=== PATIENT | male | born 1995 | race African-American/Black ===

== ENCOUNTER 2017-08-04 01:35 | Emergency (ER) | payer OTHER ==
[2017-08-04] MEDS ORDERED: ONDANSETRON HCL INJ/PF 4 MG/2 ML SDV IV ONE (01:56)
[2017-08-04] MEDS ORDERED: PANTOPRAZOLE SODIUM 40 MG VIAL IV ONE (01:56)
[2017-08-04] MEDS ORDERED: NORMAL SALINE 1000 ML 1,000 ML IV ONE (01:57)
--- NOTE | 2017-08-04 02:07 | ER Document Report ---
ED General - General Chief Complaint: Vomiting Stated Complaint: DIARRHEA,VOMITING Time Seen by Provider: 08/04/17 01:51 Notes: Patient is a 22-year-old male presents with complaint of coughing. He says for last couple days been coughing a lot bringing up mucus. He says today he started becoming nauseous and vomited several times. He said the last time he threw up he did throw up some blood. She has also been having diarrhea today. He said every time he drinks water he eventually has just liquidy stools. No black or tarry stools. No blood in the stool. No history of acid reflux. He denies any abdominal pain. He denies chest pain. He denies any recent alcohol use. The last time he drank alcohol was approximately 2 weeks ago. He says he never drank on a daily basis and never considered himself to be an alcoholic. He does not take any medications. He denies taking any recent Motrin, Advil, ibuprofen, aspirin, or any NSAIDs. No history of gastric ulcers or gastritis. TRAVEL OUTSIDE OF THE [place] IN LAST 30 DAYS: No - Related Data Allergies/Adverse Reactions: Penicillins Allergy (Verified 08/04/17 01:40) Past Medical History - Social History Smoking Status: Unknown if Ever Smoked Frequency of alcohol use: Occasional Drug Abuse: None Family History: Reviewed & Not Pertinent Review of Systems - Review of Systems Notes: My Normal Review Basic REVIEW OF SYSTEMS: CONSTITUTIONAL : Denies fever, chills, or sweats. Denies recent illness. EENT: Denies eye, ear, throat, or mouth pain or symptoms. Denies nasal or sinus congestion. RESPIRATORY: Coughing with mucus production. GASTROINTESTINAL: No social abdominal pain. Some vomiting with one episode of bloody emesis. GENITOURINARY: Denies difficulty urinating, painful urination, burning, frequency, or blood in urine. MUSCULOSKELETAL: Denies neck or back pain or joint pain or swelling. SKIN: Denies rash or skin lesions. NEUROLOGICAL: Denies altered mental status or loss of consciousness. Denies headache. Denies weakness or paralysis or loss of use of either side. Denies problems with gait or speech. Denies sensory or motor loss. ALL OTHER SYSTEMS REVIEWED AND NEGATIVE. Physical Exam - Vital signs Vitals: Temp Pulse Resp BP Pulse Ox 98.6 F 112 H 20 125/62 95 08/04/17 01:40 08/04/17 01:40 08/04/17 01:40 08/04/17 01:40 08/04/17 01:40 - Notes Notes: General Appearance: Well nourished, alert, cooperative, no acute distress, no obvious discomfort. Well-appearing. Comfortable appearing. Vitals: reviewed, See vital signs table. Head: no swelling or tenderness to the head Eyes: PERRL, EOMI, Conjuctiva clear Mouth: No decreasd moisture Lungs: No wheezing, No rales, No rhonci, No accessory muscle use, good air exchange bilaterally. Heart: Mildly tachycardic rate, Regular rythm, No murmur, no rub Abdomen: Normal BS, soft, No rigidity, No abdominal tenderness to palpation. Extremities: strength 5/5 in all extremities, good pulses in all extremities, no swelling or tenderness in the extremities, no edema. Skin: warm, dry, appropriate color, no rash Neuro: speech clear, oriented x 3, normal affect, responds appropriately to questions. Course - Re-evaluation Re-evalutation: 08/04/17 03:40 Patient's laboratory evaluation has returned. He has some signs of dehydration. He did receive IV fluids. He is now sipping water. He says he still has some nausea but it is much improved from when he first came in. I will give him a low-dose of nausea medication and see if he can get his symptoms completely resolved. He has had no further vomiting since arriving to the ER. 08/04/17 05:26 She does not is now completely resolved. He looks and feels well. His vital signs are normal. His heart rate is 80. He has had no further vomiting since he has been here. He has no social abdominal pain. I feel he is safe to be discharged home. I will give him prescription for both Zofran and Phenergan. I informed him Phenergan will make him sleepy and therefore he should not take it if he is currently at work. I informed him he must return to ER immediately if he has recurrent vomiting not controlled by the nausea medicine or if he vomits any blood whatsoever. Also encouraged to return to ER if he has abdominal pain or fevers. However from the GI being that he did have the one emesis with blood. I think is unlikely that he has a significant upper GI bleed being that he has normal hemoglobin and normal vital signs and no abdominal or chest pain. Patient agrees with plan and will be discharged home. Dictation of this chart was performed using voice recognition software; therefore, there may be some unintended grammatical errors. - Vital Signs Vital signs: Temp Pulse Resp BP Pulse Ox 98.6 F 112 H 20 117/66 97 08/04/17 01:40 08/04/17 01:40 08/04/17 05:00 08/04/17 04:31 08/04/17 05:00 - Laboratory Result Diagrams: 08/04/17 02:00 08/04/17 02:00 Laboratory results interpreted by me: 08/04/17 08/04/17 02:00 02:00 RBC 6.75 H Hgb 17.7 H Hct 53.2 H MCV 79 L MCH 26.2 L Seg Neutrophils % 82.3 H Lymphocytes % 10.3 L Sodium 147.9 H Creatinine 1.33 H Glucose 111 H Total Protein 9.0 H Albumin 5.2 H Discharge - Discharge Clinical Impression: Vomiting and diarrhea Condition: Good Disposition: HOME, SELF-CARE Additional Instructions: I have prescribed 2 nausea medications. The first one is Zofran. Zofran will not make you sleepy. You should take Phenergan if you still feel nauseous after the Zofran. The Phenergan will make you sleepy so do not work or operate heavy machinery if you have taken the Phenergan. Please follow up with the Gi physician, Dr. José, for reevaluation and discussion as to whether r not your need an upper GI scope being that you had the episode of bloody vomiting. Please return to the ER immediately if you have any recurrence of blood vomiting , intractable vomiting, fevers, or abdominal pain. Please avoid Nsaid medicaitons such as aspirin, Motrin, Ibuprofen, Aleve. Tylenol is safe to take. Prescriptions: Omeprazole Magnesium [Prilosec Otc] 20 mg PO BID #14 tablet. Ondansetron [Zofran Odt 4 mg Tablet] 1 tab PO Q4H PRN #15 tab.rapdis PRN Reason: For Nausea/Vomiting Promethazine HCl [Phenergan 25 mg Tablet] 1 tab PO Q6H PRN #15 tablet PRN Reason: Forms: Return to Work Referrals: SUDHA JOSÉ MD [ACTIVE STAFF] - 08/05/17
[2017-08-04 02:12] LABS: ABSOLUTE EOSINOPHILS # (AUTO) 0.1 10^3/uL (0.0-0.6); ABSOLUTE LYMPHOCYTES (AUTO) 0.9 10^3/uL (0.5-4.7); ABSOLUTE MONOCYTES (AUTO) 0.5 10^3/uL (0.1-1.4); BASOPHILS % (AUTO) 0.3 % (0-2); EOSINOPHILS % (AUTO) 1.3 % (0-6); HEMATOCRIT 53.2 % (37.9-51.0); HEMOGLOBIN 17.7 g/dL (13.5-17.0); LYMPHOCYTES % (AUTO) 10.3 % (13-45); MEAN CORPUSCULAR HEMOGLOBIN 26.2 pg (27.0-33.4); MEAN CORPUSCULAR HGB CONC 33.2 g/dL (32.0-36.0); MEAN CORPUSCULAR VOLUME 79 fl (80-97); MONOCYTES % (AUTO) 5.8 % (3-13); PARTIAL THROMBOPLASTIN TIME 29.8 SEC (23.5-35.8); PLATELET COUNT 220 10^3/uL (150-450); PROTHROMBIN TIME 13.7 SEC (11.4-15.4); RED BLOOD COUNT 6.75 10^6/uL (4.35-5.55); RED CELL DISTRIBUTION WIDTH 13.4 % (11.5-14.0); SEGMENTED NEUTROPHILS % (AUTO) 82.3 % (42-78); TOTAL CELLS COUNTED % (AUTO) 100 %; WHITE BLOOD COUNT 8.5 10^3/uL (4.0-10.5)
[2017-08-04 02:27] LABS: ALANINE AMINOTRANSFERASE 31 U/L (21-72); ALBUMIN 5.2 g/dL (3.5-5.0); ALKALINE PHOSPHATASE 81 U/L (38-126); ANION GAP 18 (5-19); ASPARTATE AMINO TRANSFERASE 52 U/L (17-59); BILIRUBIN,DIRECT 0.4 mg/dL (0.0-0.4); BILIRUBIN,TOTAL 0.6 mg/dL (0.2-1.3); BLOOD UREA NITROGEN 20 mg/dL (7-20); CALCIUM 10.1 mg/dL (8.4-10.2); CARBON DIOXIDE 25 mmol/L (22-30); CHLORIDE 105 mmol/L (98-107); GLUCOSE 111 mg/dL (75-110); POTASSIUM 4.3 mmol/L (3.6-5.0); SODIUM 147.9 mmol/L (137-145)
--- NOTE | 2017-08-04 02:49 | RADIOLOGY REPORT (SQ) ---
EXAM DESCRIPTION: CHEST 2 VIEWS CLINICAL HISTORY: 22 years Male, cough COMPARISON: None. NUMBER OF VIEWS/TECHNIQUE: 2, PA and Lateral LIMITATIONS: None. FINDINGS: Normal lung volume. Clear parenchyma. Normal cardiac silhouette. Intact bony thorax. IMPRESSION: No acute cardiopulmonary findings.
[2017-08-04] MEDS ORDERED: PROMETHAZINE HCL INJ 25 MG/1 ML VIAL IM ONE (03:23)
[2017-08-04 05:38] VITALS: BP 117/66
== END 2017-08-04 05:53 | disposition home or self-care (01) ==
LOC: ER 01:35
DX: R11.10 Vomiting, unspecified (principal); R19.7 Diarrhea, unspecified; R05 Cough; R00.0 Tachycardia, unspecified
CPT/HCPCS: 99284; 96372; 96361; 96374; 96375; 36415; 83735; 85025; 85610; 85730; 80053; 71046; S0164; J2550; J2405; J7030